=== PATIENT | female | born 1955 | race Caucasian/White ===

== ENCOUNTER 2022-07-18 09:10 | Day surgery (SDC) | payer MEDICARE ==
[2022-07-16 12:57] VITALS: BMI 29.0
[2022-07-18] MEDS ORDERED: Neomycin-Polymyxin 1 ML AMP ONE (10:58)
[2022-07-18] MEDS ORDERED: Bupivacaine PF 0.5% 30 ML VIAL ONE (10:58)
[2022-07-18] MEDS ORDERED: CEFAZOLIN 2 GM VIAL ONE (11:16)
== END 2022-07-18 14:15 | disposition home or self-care (01) ==
LOC: CSHSDC 09:10
PROVIDERS: ATTEND Podiatrist Foot & Ankle Surgery
PROC: 0SGM04Z Fusion of Right Metatarsal-Phalangeal Joint with Internal Fixation Device, Open Approach (ICD-10-PCS; principal; 2022-07-18)
DX: M20.21 Hallux rigidus, right foot (principal); I10 Essential (primary) hypertension; E11.9 Type 2 diabetes mellitus without complications; R32 Unspecified urinary incontinence; J02.8 Acute pharyngitis due to other specified organisms; Z79.82 Long term (current) use of aspirin; Z79.84 Long term (current) use of oral hypoglycemic drugs; Z79.899 Other long term (current) drug therapy; Z98.51 Tubal ligation status
CPT/HCPCS: 28750; 73620; C1713 ×4; S0020